=== PATIENT | female | born 1995 | race African-American/Black ===

== ENCOUNTER 2017-11-18 16:18 | Emergency (ER) | payer MEDICAID ==
[~2017-11-18] VITALS: Ht 162.6 cm; Wt 63.0 kg
[2017-11-18 16:38] VITALS: BP 125/74
== END 2017-11-18 19:30 | disposition left against medical advice (07) ==
LOC: ER 16:36
DX: M62.838 Other muscle spasm (principal); Z53.21 Procedure and treatment not carried out due to patient leaving prior to being seen by health care provider